=== PATIENT | male | born 1945 | race Caucasian/White ===

== ENCOUNTER → 2020-05-15 | Outpatient (CLI) | payer OTHER ==
[~2020-05-15] VITALS: Ht 175.3 cm; Wt 72.6 kg
[~2020-05-15] MED LIST: ATIVAN1 MG PO; COUMADIN6 MG PO; HYDREA 500 MG500 M1 PO; JANTOVEN6 MG PO; LATANOPROST 0.2.5 ML OPHTHALMIC; LISINOPRIL30 MG PO; ZOCOR20 MG PO
--- NOTE | ~2020-05-15 | P ---
[facility] [place] [address] PROCEDURE REPORT Name: JAMEYAPRYL Asaf Room #: REG [facility]#: [id number] Admission: 05/15/20 Attend Phys: Jose Juan Oneal MD Discharge: Date of : 41 Report #: [id number] THIS REPORT FOR: cc: Adalgisa Moses MD, Jennifer S. MD Thesing, John A. MD ~ CC: Adalgisa Young OUTPATIENT COLONOSCOPY REPORT BRIEF HISTORY: The patient is a 74-year-old male with a history of multiple colon polyps, for high risk screening colonoscopy. PREOPERATIVE DIAGNOSIS: High risk screening colonoscopy. POSTOPERATIVE DIAGNOSES: 1. Multiple colon polyps. 2. Moderately severe left-sided diverticulosis coli. 3. Moderate internal hemorrhoids. MEDICATIONS: Deep sedation with propofol per Anesthesia. SPECIMENS: 1. Splenic flexure polyps x 2. 2. Cecal polyp. 3. Proximal ascending colon polyp. 4. Proximal transverse colon polyps x 2. 5. Rectal polyp. ESTIMATED BLOOD LOSS: 5 mL. PROCEDURE: Colonoscopy to cecum and terminal ileum with snare polypectomy and biopsy. FINDINGS: Prior to propofol sedation, procedure of colonoscopy was discussed with the patient as well as potential risks and its complications. He indicates he understands and desires to proceed. DESCRIPTION OF PROCEDURE: With the patient in left lateral decubitus position, digital examination was completed, which revealed no abnormalities. Subsequently, the Olympus video colonoscope was introduced into the rectum, advanced under direct vision to the cecum, done with minimal difficulty. The cecum was identified by the ileocecal valve and the appendiceal orifice. I was able to visualize the distal segment of terminal ileum, which was inspected and [facility] [address] [place] [address] PROCEDURE REPORT Name: APRYL CONCEPCION Room #: REG [facility].#: [id number] Admission: 05/15/20 Attend Phys: Jose Juan Oneal MD Discharge: Date of : 41 Report #: [id number] noted to be unremarkable. At that point, the scope was slowly withdrawn and careful circumferential views obtained including retroflexion of the scope in the ascending colon. Upon slow withdrawal of the scope, there were some limitations of the prep. We were able to clean up much of this material, but not every last bit of it could be removed. Within these limitations scattered about the colon, a small lesion could have been overlooked. As we withdrew the scope, a diminutive polyp was seen in the cecum and removed with biopsy forceps. Another diminutive polyp was seen in the proximal ascending colon. In the proximal transverse colon, 2 polyps were seen ranging in size from 3-6 mm and both removed by cold snare polypectomy. At the splenic flexure, 2 polyps were seen in the range of 5-6 mm. Both removed by cold snare polypectomy and recovered. There was more oozing than expected from both those sites and both sites were managed with hemostatic clips with good control. One clip was placed on each polypectomy site. The scope was further withdrawn and he was noted to have moderately severe diverticular disease of the left colon and most notably in the sigmoid colon. There were fairly extensive numbers of diverticula. However, there was no endoscopic evidence of diverticulitis. The scope was inserted into the rectum and a flat 5 mm polyp was seen and removed by cold snare polypectomy. No additional abnormalities were seen in the rectum until upon retroflexion, small to moderate internal hemorrhoids were seen. Scope was withdrawn. The patient tolerated the procedure well. CONDITION OF THE PATIENT UPON DISCHARGE: Following procedure, the patient was drowsy, aroused, conversant and will be discharged to the home when fully ambulatory. INSTRUCTIONS TO THE PATIENT AND FAMILY AT THE TIME OF DISCHARGE: We will follow up on the pathology of the polyp. A total of 7 polyps were removed today. In view of his history of multiple colon polyps, suggest return in 3 years for high risk screening colonoscopy. By: [id number] Jose Juan Oneal MD /nt
== END | disposition home or self-care (01) ==
LOC: GI 08:18
PROVIDERS: ATTEND Specialist
DX: Z01.812 Encounter for preprocedural laboratory examination (principal); Z20.828 Contact with and (suspected) exposure to other viral communicable diseases; Z86.010 Personal history of colon polyps; I10 Essential (primary) hypertension; E78.00 Pure hypercholesterolemia, unspecified; H40.9 Unspecified glaucoma; Z98.890 Other specified postprocedural states; Z79.899 Other long term (current) drug therapy; Z90.49 Acquired absence of other specified parts of digestive tract; Z87.891 Personal history of nicotine dependence; Z86.73 Personal history of transient ischemic attack (TIA), and cerebral infarction without residual deficits